=== PATIENT | male | born 1935 | race Caucasian/White ===

== ENCOUNTER → 2016-12-11 | Outpatient (CLI) | payer MEDICARE, OTHER ==
[2016-01-03 08:38] VITALS: BP 124/72
[~2016-12-11] MED LIST: ACET325T9 PO; ACYC400T PO; ALLO300T PO; ASPI-630 PO; CARV12.5 PO; CIPR500S2 PO; CRESTOR10 MG PO; DILT120C2 PO; DILT240C2 PO; ESOM40CA PO; FLUT1DIS3 IH; HYDR-2762 PO; INDO25CA PO; LEVO500T59 PO; LISI-334 PO; METR500T8 PO; OMEG1CAP16 PO; POTA10TA10 PO; POTA20TA4 PO; PRAV40TA2 PO; SENN1TAB15 PO; TIOT18CA IH; TORS20TA2 PO; WARF3TAB54 PO
--- NOTE | 2016-12-11 14:03 | RAD ---
Indication chronic low back pain. Axial images through the lumbar spine were obtained and reformatted in the coronal and sagittal planes. Disc cuts were also obtained. Note is made of a previous examination 05/02/2014. Imaging through the upper abdomen demonstrates a nodule associated with the left adrenal gland consistent with a benign nodule and appearing unchanged compared to a study 04/23/2015. There is a low-density mass, compatible with a cyst, off the left kidney. There is a saccular aneurysm measuring approximately 4 cm in greatest dimension associated distal abdominal aorta There is mild compression involving L1 appearing similar to the previous study. Vacuum disc phenomenon is noted at L5-S1. There is disc space narrowing with associated degenerative endplate changes at L2-3 also appearing similar to the previous study. There is mild scoliosis. An acute finding in the lumbar spine is not seen. Significant facet degenerative changes are noted particularly at L4-5 and L5-S1. T11-12 is unremarkable. T12-L1 also appears normal. No significant finding is seen at L1-2. At L2-3 there is slight left neural foraminal encroachment. At L3-4 there is some ligamentum flavum hypertrophy. There is slight disc bulging. There is moderate neural foraminal encroachment bilaterally. The canal is narrowed maximally to approximately 7 to 8 mm. At L4-5 there is significant disc bulging with moderately severe spinal stenosis. There is moderate bilateral foraminal encroachment. No significant finding is seen at L5-S1. IMPRESSION: Lumbar spondylosis. Mild spinal stenosis at L3-4 with mild bilateral neural foraminal encroachment. Moderately severe spinal stenosis at L4-5 with associated bilateral neural foraminal encroachment. Slight left neural foraminal encroachment L2-3 Saccular 4 cm abdominal aortic aneurysm PQRS Compliance Statement: One or more of the following individualized dose reduction techniques were utilized for this examination: 1. Automated exposure control 2. Adjustment of the mA and/or kV according to patient size 3. Use of iterative reconstruction technique
== END | disposition home or self-care (01) ==
LOC: CT 13:18
PROVIDERS: ATTEND Anesthesiology Pain Medicine
DX: M48.06 Spinal stenosis, lumbar region (principal); M47.896 Other spondylosis, lumbar region; M54.16 Radiculopathy, lumbar region; I71.4 Abdominal aortic aneurysm, without rupture
CPT/HCPCS: 72131

== ENCOUNTER → 2017-04-05 | Outpatient (CLI) | payer MEDICARE ==
[2016-01-03 08:38] VITALS: BP 124/72
--- NOTE | 2017-04-05 13:11 | RAD ---
Examination: 6 views of the lumbar spine History: History of lumbar stenosis Comparison: 12/11/2016 CT scan Findings There is moderate compression change of L1 vertebral body similar to prior exam. Mild retrolisthesis of L2 on L3 and minimal retrolisthesis of L3 on L4 unchanged since prior exam. There is minimal anterolisthesis of L4 on L5. Moderate multilevel degenerative changes identified in the lumbar spine. Moderate multilevel neural foraminal narrowing identified in the lumbar spine. No obvious spondylolysis identified. Impression: 1. Moderate degenerative changes lumbar spine. 2. Mild retrolisthesis of L2 on L3 and L3 on L4 and minimal anterolisthesis of L4-L5 similar to prior exam.
== END | disposition home or self-care (01) ==
LOC: DXRAD 11:56
PROVIDERS: ATTEND Anesthesiology Pain Medicine
DX: M47.26 Other spondylosis with radiculopathy, lumbar region (principal)
CPT/HCPCS: 72114

== ENCOUNTER → 2017-04-07 | Day surgery (SDC) | payer MEDICARE ==
[2016-01-03 08:38] VITALS: BP 124/72
[~2017-04-07] MED LIST changes: +BUPIVACAINE MPF 0.5% 30 ML VIAL. ONE; +IV RINGERS SOLUTION,LACTATED 1,000 ML IV ONE; +LIDOCAINE 1% PF 30 ML VIAL. ONE; +MIDAZOLAM HCL PF 2 MG/2 ML VIAL. ONE
[2017-04-07 10:06] LABS: BASO # 0.1 x10^3/uL (0.0-0.2); BASO % 1 % (0-3); EOS # 0.2 x10^3/uL (0.0-0.7); EOS % 4 % (0-3); HEMATOCRIT 42.8 % (39.0-53.0); HEMOGLOBIN 14.6 g/dL (13.0-17.5); LYMPH % 32 % (24-48); MEAN CORPUSCULAR HEMOGLOBIN 33 pg (25-35); MEAN CORPUSCULAR HGB CONC 34 g/dL (31-37); MEAN CORPUSCULAR VOLUME 97 fL (79-100); MONO # 0.6 x10^3/uL (0.0-1.1); MONO % 9 % (0-9); NEUT # 3.4 x10^3uL (1.8-7.7); NEUT % 55 % (31-73); PLATELET COUNT 196 x10^3/uL (140-400); RED BLOOD COUNT 4.42 x10^6/uL (4.30-5.70); RED CELL DISTRIBUTION WIDTH 13.5 % (11.5-14.5); WHITE BLOOD COUNT 6.3 x10^3/uL (4.0-11.0)
[2017-04-07 10:09] LABS: BILIRUBIN,URINE NEG (NEG); CLARITY,URINE HAZY; COLOR,URINE AMBER; GLUCOSE,URINE NEG (NEG)
[2017-04-07 10:10] LABS: BACTERIA,URINE 0 /HPF (0-FEW); NITRITE,URINE NEG (NEG); SQUAMOUS EPITHELIAL CELL,UR OCC /LPF; UROBILINOGEN,URINE 1 mg/dL (0.2 mg/dL); WBC,URINE 0 /HPF (0-4)
== END | disposition home or self-care (01) ==
LOC: SURG 09:03
PROVIDERS: ATTEND Anesthesiology Pain Medicine
DX: M48.06 Spinal stenosis, lumbar region (principal); J44.9 Chronic obstructive pulmonary disease, unspecified; I11.0 Hypertensive heart disease with heart failure; I50.9 Heart failure, unspecified; K21.9 Gastro-esophageal reflux disease without esophagitis; M19.91 Primary osteoarthritis, unspecified site
CPT/HCPCS: 22867; 36415; 81001; 85025; 85610; J2001; J2250; J3010; J3490; J7120; 62380; 63030; 63056; 64421

== ENCOUNTER → 2017-05-12 | Outpatient (CLI) | payer MEDICARE ==
[2016-01-03 08:38] VITALS: BP 124/72
[~2017-05-12] MED LIST changes: -BUPIVACAINE MPF 0.5% 30 ML VIAL. ONE; -IV RINGERS SOLUTION,LACTATED 1,000 ML IV ONE; -LIDOCAINE 1% PF 30 ML VIAL. ONE; -MIDAZOLAM HCL PF 2 MG/2 ML VIAL. ONE
== END | disposition home or self-care (01) ==
LOC: SURG 13:10
PROVIDERS: ATTEND Anesthesiology Pain Medicine
DX: M48.061 Spinal stenosis, lumbar region without neurogenic claudication (principal); M51.36 Other intervertebral disc degeneration, lumbar region; M62.838 Other muscle spasm; I11.0 Hypertensive heart disease with heart failure; I50.9 Heart failure, unspecified; I25.10 Atherosclerotic heart disease of native coronary artery without angina pectoris; J44.9 Chronic obstructive pulmonary disease, unspecified; K21.9 Gastro-esophageal reflux disease without esophagitis; J18.9 Pneumonia, unspecified organism; F17.210 Nicotine dependence, cigarettes, uncomplicated; Z96.619 Presence of unspecified artificial shoulder joint
CPT/HCPCS: 99213